=== PATIENT | female | born 1980 | race African-American/Black ===

== ENCOUNTER 2016-11-09 11:24 | Emergency (ER) | payer SELFPAY ==
[2016-11-09] MEDS ORDERED: Fentanyl 100 MCG/2 ML VIAL ONE (11:53)
[2016-11-09 12:15] LABS: #Basophils 0.1 thou/uL (0.0-0.2); #Eosinphils 0.4 thou/uL (0.0-0.7); #Lymphocytes 1.8 thou/uL (1.20-3.40); #Monocytes 0.6 thou/uL (0.11-0.59); #Neutrophils 4.2 thou/uL (1.40-6.50); %Basophils 0.9 % (0.0-1.0); %Lymphocytes 25.9 % (21.0-51.0); %Monocytes 7.9 % (0.0-10.0); Mean Platelet Volume 6.5 fL (7.4-10.4); Red Blood Cell (RBC) Count 5.53 mill/uL (4.20-5.40); White Blood Cell (WBC) Count 7.1 thou/uL (4.8-10.8)
[2016-11-09 12:30] LABS: Bilirubin Negative (Negative); Blood, Urine Small (Negative); Glucose, Urine (Dipstick) Negative (Negative); Ketone, Urine Negative (Negative); Nitrite Negative (Negative); Protein, Urine (Dipstick) > or equal to 300 mg/dL (Neg-Trace); Urobilinogen 0.2 mg/dL (0.2-1.0)
[2016-11-09 12:32] LABS: Bacteria/HPF Rare-Few HPF (None Seen); Hyaline Casts/LPF 4-6 HYALINE CAST LPF (0-3 Hyaline)
[2016-11-09 12:34] LABS: ALT (SGPT) 20 U/L (8-55); AST (SGOT) 25 U/L (5-34); Alkaline Phosphatase 98 U/L (40-150); Anion Gap 10 mmol/L (10-20); BUN (Urea Nitrogen) 12 mg/dL (7.0-18.7); Bilirubin, Total 0.2 mg/dL (0.2-1.2); Calc. Creatinine Clearance 0 mL/min (70-130); Calcium 8.2 mg/dL (7.8-10.44); Carbon Dioxide 27 mmol/L (22-29); Chloride 106 mmol/L (98-107); Estimated GFR-MDRD Greater than 90; Lipase 23 U/L (8-78); Protein, Total 5.9 g/dL (6.0-8.3)
[2016-11-09 12:41] LABS: Renal Epithelial None Seen HPF (0-3); Transitional Epithelial NONE SEEN HPF (0-3)
--- NOTE | 2016-11-09 13:34 | CT ---
CT ABDOMEN WITH IV CONTRAST CT PELVIS WITH IV CONTRAST: Date: 11/09/16 HISTORY: Intermittent abdominal pain. FINDINGS: There is bibasilar atelectasis. A nonobstructing, approximately 3.0 mm superior pole right renal calculus is seen. The liver, spleen, pancreas, bilateral adrenal glands, left kidney, and abdominal aorta demonstrate a normal CT appearance. Urinary bladder is decompressed. There is an increased density mass seen at the posterior body of the uterus measuring 1.8 cm, probably related to a uterine fibroid. There is d ecreased attenuation of the endometrial canal, which may be related to the stage of the patient's me nstrual cycle. There are multiple thickened loops of small bowel. Adjacent to these loops of thickened small bowel, there is a small amount of free fluid. A majority of the loops of bowel involve the ileum. However, there also appears to be mild thickening involving the proximal loops of jejunum, as well as the du odenum. Minimal fluid is seen adjacent to the second and third portion of the duodenum. There is a small amount of free fluid noted in the pelvis. There is no free fluid, fluid collection, or lymphadenopathy seen in the abdomen or pelvis. There is a retrocecal appendix without CT findings to suggest appendicitis. The appendix is normal i n caliber. There is mild subcutaneous edema seen about the anterolateral aspects of the abdomen bilaterally. IMPRESSION: 1. Thickened loops of bowel involving the most proximal small bowel, as well as a large portion of the ileum. Loops of bowel in this region are fluid-filled. There is a small amount of free fluid adj acent to several of the loops of thickened small bowel, and findings may be related to enteritis. 2. No CT evidence of appendicitis. 3. Nonobstructing right renal calculus. 4. Very small amount of ascites. 5. Nonspecific subcutaneous edema about the anterolateral aspects of the abdomen bilaterally. POS: [facility]
== END 2016-11-09 13:50 | disposition home or self-care (01) ==
LOC: ERS 11:24
DX: R10.31 Right lower quadrant pain (principal); F41.9 Anxiety disorder, unspecified; F31.9 Bipolar disorder, unspecified; F17.210 Nicotine dependence, cigarettes, uncomplicated
CPT/HCPCS: 36415; 74177; 80053; 81003; 81015; 83690; 84703; 85025; 87480; 87491; 87510; 87591; 87660; 96361; 96374; J3010

== ENCOUNTER 2016-11-14 11:24 | Emergency (ER) | payer SELFPAY ==
[2016-11-14 13:00] LABS: Anion Gap 7 mmol/L (10-20); BUN (Urea Nitrogen) 10 mg/dL (7.0-18.7); Calc. Creatinine Clearance 0 mL/min (70-130); Calcium 8.5 mg/dL (7.8-10.44); Carbon Dioxide 28 mmol/L (22-29); Chloride 106 mmol/L (98-107); Estimated GFR-MDRD Greater than 90
[2016-11-14] MEDS ORDERED: Furosemide 40 MG TAB ONE (13:10)
== END 2016-11-14 13:16 | disposition home or self-care (01) ==
LOC: ERS 11:24
DX: R60.0 Localized edema (principal); F41.9 Anxiety disorder, unspecified; F31.9 Bipolar disorder, unspecified; F17.210 Nicotine dependence, cigarettes, uncomplicated
CPT/HCPCS: 36415; 80048; 99284

== ENCOUNTER 2017-07-13 20:00 | Inpatient (IN) | payer OTHER ==
[2017-07-13] MEDS ORDERED: Acetaminophen 500 MG TAB PO PRN (22:14)
[2017-07-13] MEDS ORDERED: Lidocaine 1% (PF) 30 ML VIAL SC PRN (22:14)
[2017-07-13] MEDS ORDERED: NS / Oxytocin 40 units/1000ml 1,000 ML IV PRN (22:14)
[2017-07-13] MEDS ORDERED: Promethazine HCl 25 MG/ML VIAL IM PRN (22:14)
[2017-07-13] MEDS ORDERED: Ondansetron PF 4 MG/2 ML Vial IVP PRN (22:14)
[2017-07-13] MEDS ORDERED: NS w/ Oxytocin 10 units 500 ML IV SCH (22:15)
--- NOTE | 2017-07-13 22:22 | PDOC.LDHP ---
Labor and Delivery H&P Chief complaint: scheduled induction HPI: 36 yo at 37.0 wks here for IOL for IUGR. 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 Denies any bleeding, LoF, discharge. +FM. Current gestational age (weeks): 37 Due date: 08/03/17 Dating criteria: last menstrual period Current complications: IUGR Current medications: pre- vitamins, iron, other (acyclovir) Previous surgical history: other (BTL s/p reversal) - Physical Exam Vital signs reviewed and normal: yes General: NAD, resting Heart: RRR Lungs: CTAB Abdomen: NTTP Extremeties: trace edema FHT: category 1, variability present - Vaginal Exam cm dilated: 2 Effacement: 50% Station: -2 - OB Labs Blood type: B RH: positive Antibody Screen: negative HIV: negative RPR: negative HEPSAg: negative 1 hour GCT: positive 3 hour GTT: 81/132/138/55 GBS: unknown - Assessment L&D Assessment: medically indicated induction - Plan Plan: admit to L&D -: Will admit to L&D, balloon placed at 2300. Will continue to ripen with balloon plus pitocin. FHTs 140s, few ctx, + accels, no decels. Cat I strip overall. Continue acyclovir for ppx, no active lesions. Pain control as indicated. <Hernandez Hall - Last Filed: 07/13/17 23:02> <La Nena Bowens - Last Filed: 07/13/17 23:46> Allergies/Adverse Reactions: Allergies Allergy/AdvReac Type Severity Reaction Status Date / Time No Allergy Information Allergy Unverified 07/13/17 22:21 Available Attending Addendum - Attending Addendum Date/Time: 07/13/17 7620 I personally evaluated the patient and discussed the management with Dr. Hall I agree with the History, Examination, Assessment and Plan documented above with any addition or exceptions noted below. 36 yo at 37w dated by 11w2d US presenting for medically indicated IOL for assymetric IUGR 1. IOL started with cervical ripening balloon and pitocin. 2. Grand multiparity-high risk for PPH. Will need uterotics at bedside at delivery 3. HSV-on acyclovir ppx. SSE completed by Dr. Krishna at [facility] this afternoon was negative for active lesions 4. Impaired glucose tolerance with elevated 1hr GCT but normal 3hr GTT 5. H/O Syphilis and gonorrhea 6. AMA-low risk quad, anatomy US without gross abnormality 7. H/o PTD at 27w due to PPROM-declined 17 OH-P 8. S/P BTL and reversal 9. GBS unknown-pt had lapse in care after 34 until today. PPX not indicated at this time as pt is term and no h/o prior child with invasive GBS disease. <La Nena Bowens - Last Filed: 07/13/17 23:46>
[2017-07-13 22:46] LABS: Hemoglobin 10.9 g/dL (12.0-16.0); Mean Corpuscular HGB CONC 33.2 g/dL (32.0-36.0); Mean Corpuscular Hemoglobin 27.6 pg (27.0-31.0); Mean Corpuscular Volume 83.2 fl (81.0-99.0); Mean Platelet Volume 7.2 fL (7.4-10.4); Platelet Count 264 thou/uL (130-400); RBC Distribution Width 12.4 % (11.5-14.5); Red Blood Cell (RBC) Count 3.95 mill/uL (4.20-5.40); White Blood Cell (WBC) Count 7.6 thou/uL (4.8-10.8)
[2017-07-14 00:09] LABS: Amphetamine Not Detected (NotDetected); Barbiturates Screen Not Detected (NotDetected); Benzodiazepine Screen Not Detected (NotDetected); Cocaine Metabolite Screen Not Detected (NotDetected); Medtox Control Line Valid? VALID (VALID); Medtox Reader # READER 1; Methadone Not Detected (NotDetected); Methamphetamine Not Detected (NotDetected); Opiate Screen Not Detected (NotDetected); Oxycodone Screen Not Detected (NotDetected); Phencyclidine (PCP) Not Detected (NotDetected); THC/Cannabinoid Screen Not Detected (NotDetected); Tricyclic Screen Not Detected (NotDetected)
[2017-07-14 00:14] LABS: HBSAg Index 0.25 S/CO (0-0.99); HIV (1/2) Antibody/Antigen Non-Reactive (NonReactive); HIV 1/2 INDEX 0.17 S/CO (<1.00); Hep B Surf Ag Non-Reactive S/CO (NonReactive)
[2017-07-14 00:53] LABS: Syphilis Antibody Index 11.28 S/CO (<1.00 Non-Reactive)
[2017-07-14] MEDS: Lactated Ringer's 1,000 ML IV SCH ×2 (01:41→07:15)
[2017-07-14] MEDS ORDERED: Butorphanol Tartrate 1 MG/ML VIAL SLOW IVP PRN (07:08)
[2017-07-14] MEDS ORDERED: NS / Oxytocin 40 units/1000ml 1,000 ML ONE (08:00)
[2017-07-14] MEDS ORDERED: Lidocaine 1% (PF) 30 ML VIAL ONE (08:00)
[2017-07-14] MEDS ORDERED: Carboprost 250 MCG/ML AMP ONE (08:01)
--- NOTE | 2017-07-14 08:34 | PDOC.EVN ---
Event Note - Event Note Event Note: CTSP by labor RN. Pt. c/o urge to push. SVE= /0 vtx. Fhts stable. Pt. reassured and instructed not to push. Residents are made aware.
[2017-07-14] MEDS ORDERED: Misoprostol 200 MCG TAB ONE (08:43)
[2017-07-14] MEDS: Misoprostol 200 MCG TAB ONE ×2 (08:55→08:56)
[2017-07-14] MEDS ORDERED: Lanolin Ointment 7 GM TUBE TOP PRN (09:06)
[2017-07-14] MEDS ORDERED: Bisacodyl 10 MG SUPP PR PRN (09:06)
[2017-07-14] MEDS ORDERED: Milk Of Magnesia 30 ML UDCUP PO PRN (09:06)
[2017-07-14] MEDS ORDERED: NS / Oxytocin 40 units/1000ml 1,000 ML IV SCH (09:06)
[2017-07-14] MEDS ORDERED: Adacel (T-DAP) 0.5 ML VIAL IM ONE (09:06)
[2017-07-14] MEDS ORDERED: Ondansetron PF 4 MG/2 ML Vial IVP PRN (09:06)
--- NOTE | 2017-07-14 09:29 | PDOC.OPDEL ---
OB Operative/Delivery Note Delivery Dr/Surgeon: La Nena Bowens DO Assist: Char Villarreal DO Pre-Delivery Diagnosis: active labor, medically indicated induction Procedure/Post Delivery Dx: spontaneous vaginal delivery Anesthesia: none - Findings A Sex: female - 1 min: 9 - 5 min: 9 - Additional Findings/Plan Placenta delivered: spontaneous Repaired Obstetrical Laceration: none Estimated blood loss: 350 ml Compilations/Other Findings: None Post delivery plan: routine recovery (36 yo G13 now P9-1-3-10 status post uncomplicated of female in OA position at 0838 on 07/14/17. Placenta delivered spontaneously at 0841. No lacerations. 800mcg of cytotec given rectally for PPH prophylaxis)
[2017-07-14] MEDS ORDERED: Docusate Calcium (SURFAK) 240 MG CAP PO SCH (09:30)
[2017-07-14] MEDS ORDERED: Prenatal Vitamin 1 TAB PO SCH (09:30)
--- NOTE | 2017-07-14 09:32 | PDOC.LDPN ---
Labor & Delivery Progress Note - Subjective Subjective: painful contractions - Objective Vital signs reviewed and normal: yes General: breathing through contractions Uterine fundus: non tender Dilation: 5 Effacement: 100% Station: 0 FHT: category 2, early decelerations, variable decelerations, variability present Cable contractions every: 3-4min AROM: clear fluid - Assessment (1) Encounter for induction of labor Code(s): Z34.90 - ENCNTR FOR SUPRVSN OF NORMAL , UNSP, UNSP TRIMESTER Current Visit: Yes Status: Acute Plan: continue plan of care (Late entry from 0751 Pt aromed for small amount of clear fluid. Overall reassuring tracing. Anticipate )
[2017-07-14] MEDS: Ibuprofen 800 MG TAB PO SCH ×2 (09:42→17:33)
[2017-07-14 10:10] VITALS: BMI 37.0
[2017-07-14 12:05] LABS: Amphetamine Not Detected (NotDetected); Barbiturates Screen Not Detected (NotDetected); Benzodiazepine Screen Not Detected (NotDetected); Cocaine Metabolite Screen Not Detected (NotDetected); Medtox Control Line Valid? VALID (VALID); Medtox Reader # READER 4; Methadone Not Detected (NotDetected); Methamphetamine Not Detected (NotDetected); Opiate Screen Not Detected (NotDetected); Oxycodone Screen Not Detected (NotDetected); Phencyclidine (PCP) Not Detected (NotDetected); THC/Cannabinoid Screen Not Detected (NotDetected); Tricyclic Screen Not Detected (NotDetected)
[2017-07-14] MEDS: HYDROcodone/Acetaminophen 5/325 mg Tablet PO PRN ×2 (16:03→20:31)
[2017-07-14 18:26] LABS: Syphilis Antibody INDETERMINATE (Nonreactive); Syphilis Titer Non-Reactive (Negative)
[2017-07-14] MEDS: Ferrous Sulfate 325 MG TAB PO SCH (18:49)
[2017-07-14] MEDS: Docusate Calcium (SURFAK) 240 MG CAP PO SCH (20:27)
[2017-07-15] MEDS: HYDROcodone/Acetaminophen 5/325 mg Tablet PO PRN ×2 (00:16→05:34)
[2017-07-15] MEDS: Ibuprofen 800 MG TAB PO SCH ×2 (00:17→09:02)
--- NOTE | 2017-07-15 06:56 | PDOC.PP ---
Post Progress Note Post Day #: 1 Subjective: Patient doing well this AM. No significant overnight events. Patient bonding well with . Patient voiced her desire to go home today. PO intake tolerated: yes Flatus: yes Ambulation: yes Vital Signs (12 hours) Temp Pulse Resp BP Pulse Ox 07/15/17 05:18 98.0 F 60 18 07/15/17 00:18 98.0 F 60 18 127/67 98 07/14/17 20:28 98.2 F 60 16 122/78 97 Weight Weight 104.102 kg - Physical Examination General: NAD Cardiovascular: no m/r/g, RRR Respiratory: clear to auscultation bilaterally, non-labored breathing Abdominal: + bowel sounds, lochia (wnl), no distention, appropriately TTP Neurological: no gross focal deficits Psychiatric: A&Ox3, normal affect Result Diagrams: 07/13/17 22:35 Additional Labs: Post Labs Blood Type B POSITIVE 07/13/17 22:35 Hep Bs Antigen Non-Reactive S/CO (NonReactive) 07/13/17 22:35 (1) Term delivered Code(s): O80 - ENCOUNTER FOR FULL-TERM UNCOMPLICATED DELIVERY Status: Acute (2) IUGR (intrauterine growth restriction) Status: Acute (3) History of herpes simplex infection Code(s): Z86.19 - PERSONAL HISTORY OF OTHER INFECTIOUS AND PARASITIC DISEASES Status: Chronic (4) Encounter for induction of labor Code(s): Z34.90 - ENCNTR FOR SUPRVSN OF NORMAL , UNSP, UNSP TRIMESTER Status: Resolved - Assessment/Plan 36 year old delivered TAGA F at 08:38 on 07/14/2017 via . Apgars 9/9. Term intrauterine , delivered - Continue routine PP care - Patient s/p tubal ligation reversal - Discuss contraception; will confirm at 2 week PNC visit - GBS neg: confirmed with [facility] on 07/16/2017; lab result from 07/07/17 S/p induction of labor for IUGR - TAGA infant born at 08:38 via - Apgars 9/9 Hx of HSV - Patient on ppx Dispo: plan to d/c home today <Char Villarreal - Last Filed: 07/15/17 12:40> Vital Signs (12 hours) Temp Pulse Resp BP 07/15/17 12:00 98.2 F 55 L 20 07/15/17 11:49 98.2 F 55 L 20 135/89 07/15/17 08:00 98.1 F 54 L 20 07/15/17 07:37 98.1 F 54 L 20 124/80 07/15/17 05:18 98.0 F 60 18 Weight Weight 104.102 kg Result Diagrams: 07/13/17 22:35 Additional Labs: Post Labs Blood Type B POSITIVE 07/13/17 22:35 Hep Bs Antigen Non-Reactive S/CO (NonReactive) 07/13/17 22:35 <Ramin Asbhy - Last Filed: 07/15/17 16:47> Attending Addendum - Attending Addendum Date/Time: 07/15/17 0266 I personally evaluated the patient and discussed the management with Dr. Villarreal. I agree with the History, Examination, Assessment and Plan documented above with any addition or exceptions noted below. <Ramin Ashby - Last Filed: 07/15/17 16:47>
[2017-07-15] MEDS ORDERED: Prenatal Vitamin 1 TAB PO SCH (09:00)
[2017-07-15] MEDS: Docusate Calcium (SURFAK) 240 MG CAP PO SCH (09:02)
[2017-07-15] MEDS: Ferrous Sulfate 325 MG TAB PO SCH (09:02)
[2017-07-15 11:50] VITALS: BP 135/89; TEMP 98.2
== END 2017-07-15 13:42 | disposition home or self-care (01) | DRG 774 ==
LOC: L&D 20:41 → 3SE 07-14 13:05
PROVIDERS: ADMIT Student in an Organized Health Care Education/Training Program; ATTEND Student in an Organized Health Care Education/Training Program
PROC: 10E0XZZ Delivery of Products of Conception, External Approach (ICD-10-PCS; principal; 2017-07-14)
PROC: 3E0P7VZ Introduction of Hormone into Female Reproductive, Via Natural or Artificial Opening (ICD-10-PCS; 2017-07-14)
DX: O36.5930 Maternal care for other known or suspected poor fetal growth, third trimester, not applicable or unspecified (principal); O98.32 Other infections with a predominantly sexual mode of transmission complicating childbirth; A60.00 Herpesviral infection of urogenital system, unspecified; Z3A.37 37 weeks gestation of pregnancy; Z37.0 Single live birth; Z79.899 Other long term (current) drug therapy; Z79.84 Long term (current) use of oral hypoglycemic drugs
CPT/HCPCS: 36415; 80306; 85027; 86593; 86780; 86850; 86900; 86901; 87340; 87389; C1726; J0595; J2001; J3490

== ENCOUNTER 2018-02-25 21:31 | Emergency (ER) | payer OTHER | END 2018-02-25 22:34 | disposition home or self-care (01) | LOC: ERS 21:31 | DX: O20.0 Threatened abortion (principal); O99.341 Other mental disorders complicating pregnancy, first trimester; F41.9 Anxiety disorder, unspecified; F31.9 Bipolar disorder, unspecified; O99.331 Smoking (tobacco) complicating pregnancy, first trimester; F17.210 Nicotine dependence, cigarettes, uncomplicated; Z3A.10 10 weeks gestation of pregnancy | CPT/HCPCS: 99284 ==

== ENCOUNTER 2023-09-25 13:32 | Emergency (ER) | payer OTHER ==
[2023-09-25] MEDS ORDERED: LORazepam 2 MG/ML SYR.(CARPUJECT) ONE (13:50)
[2023-09-25] MEDS ORDERED: Famotidine/PF 20 mg/2ml Vial ONE (13:56)
[2023-09-25 14:24] LABS: Hematocrit 29.4 % (36.0-47.0); Hemoglobin 9.4 g/dL (12.0-16.0); Mean Corpuscular Hemoglobin 24.7 pg (27.0-31.0); Mean Corpuscular Volume 77.2 fL (78.0-98.0); Mean Platelet Volume 9.1 fL (7.4-10.4); Platelet Count 181 10x3/uL (130-400); RBC Distribution Width 22.9 % (11.5-14.5); Red Blood Cell (RBC) Count 3.81 mill/uL (4.20-5.40)
[2023-09-25 14:26] LABS: ALT (SGPT) 33 U/L (8-55); AST (SGOT) 71 U/L (5-34); Albumin 3.5 g/dL (3.5-5.0); Alkaline Phosphatase 88 U/L (40-110); Anion Gap 19 mmol/L (10-20); BUN (Urea Nitrogen) 7 mg/dL (7.0-18.7); Bilirubin, Total 0.8 mg/dL (0.2-1.2); Calc. Creatinine Clearance 0 mL/min (70-130); Calcium 8.3 mg/dL (7.8-10.44); Carbon Dioxide 22 mmol/L (22-29); Chloride 104 mmol/L (98-107); Estimated GFR 118; Globulin 3.7 g/dL (2.4-3.5); Glucose 86 mg/dL (70-105); Potassium 3.1 mmol/L (3.5-5.1); Protein, Total 7.2 g/dL (6.0-8.3); Sodium 142 mmol/L (136-145)
[2023-09-25 14:27] LABS: Lipase 39 U/L (8-78)
[2023-09-25 14:29] LABS: Acetaminophen Less than 10 mcg/mL (10.0-30.0); Alcohol 121.8 mg/dL (Less than 10); Salicylate Less than 8.0 mg/dL (15.0-30.0)
[2023-09-25 14:30] LABS: Troponin I 0.023 ng/mL (< 0.028)
[2023-09-25 14:55] LABS: Band 2 % (5-11); Large Platelets 9.2 % (0-5); Lymphocytes 58 % (21-51); Microcytosis SLIGHT = 6-15 cells HPF (0-5); Monocytes 4 % (0-10); Neutrophil 33 % (42-75); Platelet Adequacy Comment Platelets Normal; Polychromasia SLIGHT = 2-3 cells HPF (0-2)
== END 2023-09-25 17:10 | disposition home or self-care (01) ==
LOC: ERS 13:32
DX: I10 Essential (primary) hypertension (principal); F10.129 Alcohol abuse with intoxication, unspecified; D72.819 Decreased white blood cell count, unspecified; F17.210 Nicotine dependence, cigarettes, uncomplicated
CPT/HCPCS: 36415; 71045; 80053; 80307; 83690; 83880; 84484; 84702; 85025; 85060; 93005; 96374; 96375; J1790; J2060; J3490